=== PATIENT | female | born 1980 | race Caucasian/White ===

== ENCOUNTER → 2020-07-09 | Outpatient (CLI) | payer BC ==
[~2020-07-09] MED LIST: ACETAMINOPHEN-1 EAC1 PO; ALBUTEROL INHAL17 GM IH; ALPRAZOLAM; ATENOLOL 50 MG50 M1 PO; AZITHROMYCIN 2250 MG PO; AZULFIDINE500 MG PO; BACTRIM DS TAB1 EACH PO; CYMBALTA60 MG PO; DARVOCET-N 1001 EACH PO; HYDROXYCHLOROQ200 M1 PO; IBUPROFEN 800800 MG PO; MIRAPEX0.5 MG PO; MOBIC15 MG PO; NORCO 5-325 TA1 EACH PO; NORFLEX100 MG PO; PHENERGAN 25 MG25 M1 PO; PYRIDIUM200 MG PO; ROBAXIN500 MG PO; TENORETIC 50 T1 EACH PO; TRAMADOL 50 MG50 MG PO; XANAX 0.5 MG0.5 M1 PO
== END ==
LOC: M.RAD 16:46
PROVIDERS: ATTEND Registered Nurse Diabetes Educator
DX: R05 Cough (principal); R06.02 Shortness of breath

== ENCOUNTER 2020-08-13 01:00 | Inpatient (IN) | payer BC ==
[~2020-08-13] VITALS: Ht 157.5 cm; Wt 104.3 kg
[2020-08-13 01:09] VITALS: BP 177/94
[2020-08-13] MEDS ORDERED: LISINOPRIL2.5 MG PO (01:14)
[2020-08-13] MEDS ORDERED: PLAQUENIL200 MG PO (01:14)
[2020-08-13 01:58] LABS: ABSOLUTE BASOPHILS 0.1 thou/uL (0.0-0.2); ABSOLUTE LYMPHOCYTES 2.1 thou/uL (0.8-5.3); ABSOLUTE MONOCYTES 0.8 thou/uL (0.0-1.2); ABSOLUTE NEUTROPHILS 5.6 thou/uL (1.6-8.1); BASOPHILS 0.7 %; EOSINOPHILS 0.1 %; HEMOGLOBIN 13.2 gm/dL (12.0-15.0); LYMPHOCYTES 24.2 %; MCH 25.6 pg (26.0-34.0); MCHC 32.1 g/dL (28.0-37.0); MCV 79.8 fL (80.0-100.0); MONOCYTES 9.2 %; MPV 8.6 fl. (7.2-11.1); NUCLEATED RBCS 0 /100WBC; PLATELET COUNT* 194 thou/uL (150-400); POLYS 65.8 %; RBC 5.13 mil/uL (4.20-5.00); RDW-CV 17.2 % (10.5-14.5); WBC 8.5 thou/uL (4.0-11.0)
[2020-08-13 02:05] LABS: CALCIUM 8.9 mg/dL (8.5-10.1); CREATININE 0.9 mg/dL (0.6-1.3); POTASSIUM 3.7 mmol/L (3.5-5.1)
[2020-08-13 02:09] LABS: ALBUMIN 3.2 g/dL (3.4-5.0); TOTAL BILIRUBIN 0.7 mg/dL (<0.1-1.0); TOTAL PROTEIN 6.5 g/dL (6.4-8.2)
[2020-08-13 05:03] LABS: URINE BILIRUBIN NEGATIVE (Negative); URINE BLOOD 3+ (Negative); URINE CLARITY CLEAR; URINE COLOR YELLOW; URINE GLUCOSE-RANDOM NEGATIVE (Negative); URINE KETONES NEGATIVE (Negative); URINE LEUKOCYTES-REFLEX NEGATIVE (Negative); URINE NITRITE-REFLEX NEGATIVE (Negative); URINE PROTEIN NEGATIVE (Negative); URINE UROBILINOGEN 0.2 E.U./dl (0.2-1.0)
[2020-08-13 05:33] LABS: BACTERIA-REFLEX 1-9 Few /HPF (None Seen); CASTS None Seen /LPF (None Seen); CRYSTALS None Seen /LPF (None Seen); MUCUS 0-3 Light strn/LPF (None Seen); SQUAMOUS 0-3 Few /LPF (0-3); URINE RBC >20 Many /HPF (0-2); URINE WBC-REFLEX None Seen /HPF (0-5)
[2020-08-13 07:30] VITALS: BP 126/72
[2020-08-13 09:46] LABS: APTT 24.9 Seconds (25.0-31.3)
--- NOTE | 2020-08-13 09:52 | EKG ---
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
[2020-08-13 11:40] VITALS: BP 122/62
--- NOTE | 2020-08-13 15:13 | 2DMMODE ---
[place] [address] 2 D/M-MODE ECHOCARDIOGRAM Name: RONEN SMITH Room: [place] [address] ADM IN M.R.#: [id number] Admission: 08/13/20 Attend Phys: Jon Foley Discharge: Date of : 76 Date of Service: 08/13/20 1513 Report #: [id number] THIS REPORT FOR: cc: FAM - No family physician/PCP MYRNA - No family physician/PCP Mikael Han MD [facility] ~ APPROVED REPORT Study performed: 08/13/2020 14:22:44 EXAM: Comprehensive 2D, Doppler, and color-flow Echocardiogram Patient Location: ER BSA: 2.03 HR: 71 bpm BP: 122/62 mmHg Other Information Study Quality: Fair Indications Splenic Infarction 2D Dimensions IVSd: 10.33 (7-11mm) LVOT Diam: 19.75 (18-24mm) LVDd: 43.21 mm PWd: 9.93 (7-11mm) Ascending Ao: 27.99 (22-36mm) LVDs: 31.41 (25-40mm) Aortic Root: 25.92 mm Volumes Left Atrial Volume (Systole) LA ESV Index: 14.50 mL/m2 Aortic Valve AoV Peak Winston.: 0.93 m/s AO Peak Gr.: 3.45 mmHg LVOT Max P.62 mmHg AO Mean Gr.: 2.30 mmHg LVOT Mean P.31 mmHg LVOT Max V: 0.81 m/s AO V2 VTI: 20.59 cm LVOT Mean V: 0.53 m/s LALA (VTI): 2.46 cm2 LVOT V1 VTI: 16.56 cm Mitral Valve E/A Ratio: 1.62 [place] [address] 2 D/M-MODE ECHOCARDIOGRAM Name: RONEN SMITH Room: [address] IN .R.#: [id number] Admission: 08/13/20 Attend Phys: Jon Foley Discharge: Date of : 76 Date of Service: 08/13/20 1513 Report #: [id number] MV Decel. Time: 189.58 ms MV E Max Winston.: 0.91 m/s MV PHT: 54.98 ms MVA (PHT): 4.00 cm2 TDI E/Lateral E': 5.69 E/Medial E': 7.58 Medial E' Winston.: 0.12 m/s Lateral E' Winston.: 0.16 m/s Pulmonary Valve PV Peak Winston.: 0.79 m/s PV Peak Gr.: 2.47 mmHg Tricuspid Valve RAP Estimate: 5.00 mmHg TR Peak Gr.: 12.74 mmHg RVSP: 17.74 mmHg PA Pressure: 17.74 mmHg Left Ventricle The left ventricle is normal size. There is normal LV segmental wall motion. There is normal left ventricular wall thickness. Left ventricular systolic function is normal. The left ventricular ejection fraction is within the normal range. LVEF is 60-65%. The left ventricular diastolic function is normal. Right Ventricle The right ventricle is normal size. The right ventricular systolic function is normal. Atria The left atrium size is normal. The right atrium size is normal. Aortic Valve The aortic valve is normal in structure. No aortic regurgitation is present. There is no aortic valvular stenosis. Mitral Valve The mitral valve is normal in structure. Trace mitral regurgitation. No evidence of mitral valve stenosis. Tricuspid Valve The tricuspid valve is normal in structure. Trace tricuspid regurgitation[place] [address] 2 D/M-MODE ECHOCARDIOGRAM Name: RONEN SMITH Room: [address] IN [facility]#: [id number] Admission: 08/13/20 Attend Phys: Jon Foley Discharge: Date of : 76 Date of Service: 08/13/20 1513 Report #: [id number] Pulmonic valve is not well visualized. There is no pulmonic valvular regurgitation. Great Vessels The aortic root is normal in size. IVC is normal in size and collapses >50% with inspiration. Pericardium There is no pericardial effusion. <Conclusion> The left ventricle is normal size. There is normal left ventricular wall thickness. Left ventricular systolic function is normal. The left ventricular ejection fraction is within the normal range. LVEF is 60-65%. The left ventricular diastolic function is normal. The right ventricle is normal size. The left atrium size is normal. The aortic valve is normal in structure. The mitral valve is normal in structure. The tricuspid valve is normal in structure. IVC is normal in size and collapses >50% with inspiration. There is no pericardial effusion. There is normal LV segmental wall motion. <ELECTRONICALLY SIGNED> By: Mikael Han MD, FACC 08/13/20 1513 12 12 Mikael Han MD, FACC /INF
[2020-08-13 16:15] VITALS: BP 129/60
[2020-08-13 18:20] VITALS: BP 129/60
[2020-08-13 22:00] VITALS: BP 126/72
[2020-08-14 09:14] VITALS: BP 140/83
[2020-08-14 11:51] VITALS: BP 123/74
[2020-08-14] MEDS ORDERED: CHLORTHALIDONE25 MG PO (13:45)
[2020-08-14] MEDS ORDERED: CYMBALTA60 MG PO (13:47)
[2020-08-14] MEDS ORDERED: AZULFIDINE500 MG PO (13:52)
[2020-08-14] MEDS ORDERED: PLAQUENIL200 MG PO (13:52)
[2020-08-14] MEDS ORDERED: ASA81BEC PO (13:57)
[2020-08-14 14:08] VITALS: BP 123/74
[2020-08-14] MEDS ORDERED: TRAMADOL 50 MG50 MG PO (14:24)
[2020-08-14] MEDS ORDERED: ULTRAM50 MG PO (14:25)
[2020-08-15 07:07] LABS: IgA 184 mg/dL (87-352); IgG 543 mg/dL (586-1602); IgM 68 mg/dL (26-217)
--- NOTE | 2020-08-15 13:00 | CON ---
[address] [address] CONSULTATION Name: RONEN SMITH Room: [address]#: [id number] Admission: 08/13/20 Attend Phys: Jon Torres, Discharge: 08/14/20 Date of : 76 Report #: [id number] THIS REPORT FOR: //name// cc: MYRNA - No family physician/PCP FAM - No family physician/PCP ~ CARDIOLOGY CONSULTATION INDICATION: Chest pain. HISTORY OF PRESENT ILLNESS: The patient is a very pleasant 40-year-old white female with no prior cardiac history. Her cardiac risk factors include hypertension and tobacco use. She denies any history of diabetes, hyperlipidemia or family history of premature atherosclerotic coronary artery disease. She was admitted to the hospital with epigastric and left upper quadrant pain. She was found to have a splenic infarct by CT scan. Etiology of this is not clear at present. In interview, she reported last Sunday, she had an episode of midsternal chest discomfort with diaphoresis, radiating to her left arm. This lasted for more than an hour and resolved spontaneously. She was doing nothing at that time. She has had no episodes like this prior to or since then. A 12-lead EKG shows no significant ST segment or T-wave abnormalities. There were no pathologic Q-waves. Cardiac enzymes are unremarkable. PAST MEDICAL HISTORY: 1. Hypertension. 2. Inflammatory arthritis. 3. Restless leg syndrome. 4. Nephrolithiasis. PAST SURGICAL HISTORY: 1. x 4. 2. D and C. 3. Sinus surgery. 4. Foot surgery for removal of glass. FAMILY HISTORY: Noncontributory. There was no history of sudden cardiac or coronary artery disease. SOCIAL HISTORY: The patient is . She smokes a pack of cigarettes daily as she has for the past 10 years. [place] [address] CONSULTATION Name: RONEN SMITH Room: [address]#: [id number] Admission: 08/13/20 Attend Phys: Jon Torres, Discharge: 08/14/20 Date of : 76 Report #: [id number] ALLERGIES: TRAMADOL CAUSES PRURITUS. HOME MEDICATIONS: Alprazolam p.r.n., meloxicam 15 mg daily, Tenoretic 50 mg 1 tablet daily, sulfasalazine ____ mg b.i.d., Mirapex 0.5 mg daily, lisinopril 20 mg daily, hydroxychloroquine 400 mg daily. REVIEW OF SYSTEMS: Positive for a productive cough, palpitations, chest discomfort as outlined above and dyspnea on exertion. She has occasional ankle edema. SHE REPORTS ALLERGIES TO TRAMADOL. She has arthritis as outlined above. She has mild anxiety. Otherwise, 14-point review of systems was unremarkable. PHYSICAL EXAMINATION: VITAL SIGNS: Blood pressure 123/74, pulse 67 and regular. GENERAL: This is a pleasant lady in no distress. Mood and affect appropriate. HEENT: The patient is wearing glasses. Extraocular muscles intact. Mucous membranes are moist. NECK: Shows no jugular venous distention. There are no carotid bruits. CHEST: Reveals clear lung awad without wheezes or rales. CARDIOVASCULAR: Regular rhythm without gallop or murmur. ABDOMEN: Reveals normal bowel sounds. The abdomen is soft, nontender. EXTREMITIES: Shows no edema. Peripheral pulses are 2+ and palpable. SKIN: Dry. RADIOLOGICAL DATA: Chest x-ray shows no acute cardiopulmonary abnormality. LABORATORY DATA: Reviewed and were unremarkable. Troponin is less than 0.06. A 12-lead EKG shows sinus rhythm with no acute ST or T-wave abnormalities. IMPRESSION AND RECOMMENDATIONS: 1. Chest pain, etiology not clear. The patient has not had any recurrence in the past week. I would recommend outpatient stress testing. 2. Splenic infarct, etiology not clear. The patient does report some occasional palpitations. I would like a 2-week monitor to rule out paroxysmal atrial fibrillation. 3. Hypertension. Blood pressure appears adequately controlled on current regimen of lisinopril and Tenoretic. 4. Tobacco use. Smoking cessation discussed and advised. At this point in time, the patient appears stable for discharge from a cardiac standpoint. I would arrange outpatient stress testing ____ and 2-week monitor. <ELECTRONICALLY SIGNED> By: Dom Robbins MD, FACC 08/15/20 1300 1256 [id number] Robbins MD, FACC /nt
== END 2020-08-14 14:45 | disposition home or self-care (01) | DRG 815 ==
LOC: M.ERS 01:00 → M.TBA-ER 04:30 → M.ORTHSURG 18:40 → M.2W 22:20
PROVIDERS: Personal Emergency Response Attendant; ADMIT Family Medicine; ATTEND Family Medicine
DX: D73.5 Infarction of spleen (principal); D68.59 Other primary thrombophilia; F32.9 Major depressive disorder, single episode, unspecified; I10 Essential (primary) hypertension; G43.909 Migraine, unspecified, not intractable, without status migrainosus; F17.210 Nicotine dependence, cigarettes, uncomplicated; G25.81 Restless legs syndrome; M19.90 Unspecified osteoarthritis, unspecified site; I77.6 Arteritis, unspecified; Z20.828 Contact with and (suspected) exposure to other viral communicable diseases; Z87.442 Personal history of urinary calculi; Z88.8 Allergy status to other drugs, medicaments and biological substances; Z71.6 Tobacco abuse counseling; Z79.899 Other long term (current) drug therapy

== ENCOUNTER → 2021-03-03 | Outpatient (CLI) | payer BC ==
[~2021-03-03] MED LIST changes: +ASA81BEC PO; +CHLORTHALIDONE25 MG PO; +LISINOPRIL2.5 MG PO; +PLAQUENIL200 MG PO; +ULTRAM50 MG PO
== END ==
LOC: M.RAD 14:59
PROVIDERS: ATTEND Registered Nurse Diabetes Educator
DX: M25.471 Effusion, right ankle (principal); M25.561 Pain in right knee; M79.89 Other specified soft tissue disorders; W19.XXXD Unspecified fall, subsequent encounter

== ENCOUNTER 2021-10-05 14:04 | Emergency (ER) | payer BC ==
[~2021-10-05] VITALS: Ht 157.5 cm; Wt 129.3 kg
[2021-10-05 14:26] LABS: URINE BILIRUBIN NEGATIVE (Negative); URINE BLOOD NEGATIVE (Negative); URINE CLARITY CLEAR; URINE COLOR YELLOW; URINE GLUCOSE-RANDOM NEGATIVE (Negative); URINE KETONES TRACE (Negative); URINE LEUKOCYTES NEGATIVE (Negative); URINE NITRITE NEGATIVE (Negative); URINE PROTEIN NEGATIVE (Negative); URINE UROBILINOGEN 0.2 E.U./dl (0.2-1.0)
[2021-10-05] MEDS ORDERED: ATENOLOL 50MG T50 M1 PO (14:30)
[2021-10-05] MEDS ORDERED: ZESTRIL40 MG PO (14:30)
[2021-10-05 14:49] LABS: ABSOLUTE LYMPHOCYTES 0.5 thou/uL (0.8-5.3); ABSOLUTE MONOCYTES 0.5 thou/uL (0.0-1.2); BASOPHILS 0.7 %; HEMATOCRIT 41.3 % (37.0-47.0); HEMOGLOBIN 13.5 gm/dL (12.0-15.0); MCH 27.4 pg (26.0-34.0); MCHC 32.7 g/dL (28.0-37.0); MCV 83.9 fL (80.0-100.0); MONOCYTES 13.1 %; MPV 8.3 fl. (7.2-11.1); NUCLEATED RBCS 0 /100WBC; PLATELET COUNT* 140 thou/uL (150-400); POLYS 73.2 %; RBC 4.93 mil/uL (4.20-5.00); RDW-CV 15.8 % (10.5-14.5); WBC 4.2 thou/uL (4.0-11.0)
[2021-10-05 14:55] LABS: CALCIUM 8.7 mg/dL (8.5-10.1); CREATININE 0.9 mg/dL (0.6-1.3); POTASSIUM 3.5 mmol/L (3.5-5.1)
[2021-10-05 15:00] LABS: ALBUMIN 3.5 g/dL (3.4-5.0); TOTAL BILIRUBIN 0.7 mg/dL (<0.1-1.0); TOTAL PROTEIN 6.9 g/dL (6.4-8.2)
[2021-10-05 16:20] VITALS: BP 178/90
== END 2021-10-05 16:20 | disposition home or self-care (01) ==
LOC: M.ERS 14:04
PROVIDERS: Physician Assistant
DX: R10.11 Right upper quadrant pain (principal); Z20.822 Contact with and (suspected) exposure to COVID-19; R11.2 Nausea with vomiting, unspecified; R50.9 Fever, unspecified; F32.9 Major depressive disorder, single episode, unspecified; I10 Essential (primary) hypertension; G43.909 Migraine, unspecified, not intractable, without status migrainosus; Z98.890 Other specified postprocedural states; Z79.899 Other long term (current) drug therapy; Z88.8 Allergy status to other drugs, medicaments and biological substances